=== PATIENT | female | born 1980 | race Caucasian/White ===

== ENCOUNTER 2019-01-18 17:44 | Emergency (ER) | payer MEDICAID ==
[~2019-01-18] VITALS: Ht 165.1 cm; Wt 79.8 kg
[2019-01-18 17:52] VITALS: BP 126/75; Ht 165.1 cm; Wt 79.8 kg
== END 2019-01-18 19:02 | disposition home or self-care (01) ==
LOC: ED 17:44
DX: S29.012A Strain of muscle and tendon of back wall of thorax, initial encounter (principal); X58.XXXA Exposure to other specified factors, initial encounter; Y93.89 Activity, other specified; Y92.89 Other specified places as the place of occurrence of the external cause; Y99.8 Other external cause status
CPT/HCPCS: J1885